=== PATIENT | male | born 1990 | race Caucasian/White ===

== ENCOUNTER 2018-11-04 13:17 | Emergency (ER) | payer SELFPAY ==
[~2018-11-04] VITALS: Ht 172.7 cm; Wt 137.0 kg
[2018-11-04 13:23] VITALS: BP 176/108; Ht 172.7 cm; Wt 137.0 kg
== END 2018-11-04 16:17 | disposition left against medical advice (07) ==
LOC: ED 13:17
DX: Z53.21 Procedure and treatment not carried out due to patient leaving prior to being seen by health care provider (principal)

== ENCOUNTER 2018-11-05 20:20 | Emergency (ER) | payer SELFPAY ==
[~2018-11-05] VITALS: Ht 172.7 cm; Wt 137.9 kg
[2018-11-05 20:26] VITALS: Ht 172.7 cm; Wt 137.9 kg
[2018-11-05 21:41] VITALS: BP 186/121
== END 2018-11-05 21:41 | disposition home or self-care (01) ==
LOC: ED 20:20
DX: T78.49XA Other allergy, initial encounter (principal); R22.0 Localized swelling, mass and lump, head; R51 Headache; X58.XXXA Exposure to other specified factors, initial encounter
CPT/HCPCS: J1885

== ENCOUNTER 2018-11-07 04:48 | Emergency (ER) | payer MEDICAID ==
[~2018-11-07] VITALS: Ht 172.7 cm; Wt 134.9 kg
[2018-11-07 04:53] VITALS: Ht 172.7 cm; Wt 134.9 kg
[2018-11-07 06:01] LABS: PLATELET COUNT 292 x10^3mcL (130-400)
[2018-11-07 06:06] LABS: RED CELL DISTRIBUTION WIDTH 15.4 % (11.5-14.5)
[2018-11-07 06:13] LABS: CALCIUM 9.1 mg/dL (8.5-10.1); CARBON DIOXIDE 25.8 mmol/L (21-32); CHLORIDE SERUM 99 mmol/L (98-107); GFR1 > 60 mL/min; GLUCOSE SERUM 114 mg/dL (74-106); POTASSIUM SERUM 4.7 mmol/L (3.5-5.1); SODIUM SERUM 136 mmol/L (136-145)
[2018-11-07 06:18] LABS: ALKALINE PHOSPHATASE 44 U/L (46-116); ALT/SGPT 48 U/L (16-63); AST/SGOT 31 U/L (15-37); BAND NEUTROPHIL 10 % (0-10); BASOPHIL 0 % (0-2); BILIRUBIN TOTAL 0.68 mg/dL (0.20-1.00); MONOCYTE 3 % (0-7); SEGMENTED NEUTROPHILS 82 % (37-75); TOTAL PROTEIN, SERUM 7.7 g/dL (6.4-8.2); rbc morphology (normal/abnorm) ABNORMAL (NORMAL)
[2018-11-07 06:19] LABS: PLATELET MORPHOLOGY PLATELETS NORMAL
[2018-11-07 06:20] LABS: ALBUMIN 2.9 g/dL (3.4-5.0)
[2018-11-07 08:37] VITALS: BP 162/100
== END 2018-11-07 08:37 | disposition home or self-care (01) ==
LOC: ED 04:48
PROVIDERS: Emergency Medicine
DX: K13.0 Diseases of lips (principal); I10 Essential (primary) hypertension
CPT/HCPCS: J1200; J2001; J2930; J3490; J7030

== ENCOUNTER 2018-11-09 07:42 | Emergency (ER) | payer MEDICAID ==
[~2018-11-09] VITALS: Ht 172.7 cm; Wt 136.5 kg
[2018-11-09 07:48] VITALS: BP 131/86; Ht 172.7 cm; Wt 136.5 kg
== END 2018-11-09 08:43 | disposition home or self-care (01) ==
LOC: ED 07:42
DX: K13.0 Diseases of lips (principal); I10 Essential (primary) hypertension
CPT/HCPCS: 90715